=== PATIENT | male | born 1965 | race Caucasian/White ===

== ENCOUNTER 2019-01-21 11:39 | Inpatient (IN) | payer OTHER ==
[2019-01-21 12:37] LABS: ADD MAN DIFF? NO
[2019-01-21 12:40] LABS: ABNORMAL IP MESSAGE 1; BASOPHILS % 0.2 % (0.0-2.0); EOSINOPHILS # 0.1 10^3/ul (0.0-0.5); EOSINOPHILS % 0.7 % (0.0-7.0); HEMATOCRIT 21.5 % (42.0-52.0); HEMOGLOBIN 7.2 g/dl (14.0-18.0); LYMPHOCYTES # 1.7 10^3/ul (0.8-2.9); LYMPHOCYTES % 9.1 % (15.0-51.0); MEAN CORPUSCULAR HEMOGLOBIN 33.6 pg (29.0-33.0); MEAN CORPUSCULAR HGB CONC 33.5 g/dl (32.0-37.0); MEAN CORPUSCULAR VOLUME 100.5 fl (82.0-101.0); MONOCYTE # 2.2 10^3/ul (0.3-0.9); MONOCYTES % 11.9 % (0.0-11.0); NEUTROPHIL # 14.1 10^3/ul (1.6-7.5); NEUTROPHILS % 77.3 % (39.0-77.0); PLATELET COUNT 76 10^3/UL (140-415); POSITIVE DIFF @See below; RED BLOOD COUNT 2.14 10^6/ul (4.70-6.10); RED CELL DISTRIBUTION WIDTH 17.5 % (11.5-14.5)
[2019-01-21 12:40] LABS: WHITE BLOOD COUNT 18.3 10^3/ul (4.8-10.8)
[2019-01-21] MEDS: ALBUMIN HUMAN 25% 100 ML IV ×3 (12:52→23:47)
[2019-01-21] MEDS: CA CHLORIDE 10% 10 ML SYRINGE IV (12:53)
[2019-01-21] MEDS: PIPER-TAZO 2.25 GM (PMX) 50 ML IVPB (12:55)
[2019-01-21 12:57] LABS: ALANINE AMINOTRANSFERASE 25 IU/L (13-69); ALBUMIN 2.3 g/dl (3.3-4.9); ALBUMIN/GLOBULIN RATIO 0.65; ALKALINE PHOSPHATASE 143 IU/L (42-121); ANION GAP 13 (5-13); ASPARTATE AMINO TRANSFERASE 47 IU/L (15-46); BILIRUBIN,INDIRECT 1.6 mg/dl (0-1.1); BILIRUBIN,TOTAL 1.7 mg/dl (0.2-1.3); BLOOD UREA NITROGEN 30 mg/dl (7-20); CALCIUM 8.9 mg/dl (8.4-10.2); CARBON DIOXIDE 22 mmol/L (21-31); CHLORIDE 93 mmol/L (97-110); CREATININE 4.06 mg/dl (0.61-1.24); Estimated GFR 15 mL/min (>60); GLUCOSE 113 mg/dl (70-220); LIPASE 881 U/L (23-300); SODIUM 128 mmol/L (135-144); TOTAL PROTEIN 5.8 g/dl (6.1-8.1)
[2019-01-21 13:04] LABS: PT RATIO 2.5
[2019-01-21 13:08] LABS: TROPONIN-I < 0.012 ng/ml (0.000-0.120)
[2019-01-21 13:20] LABS: PARTIAL THROMBOPLASTIN TIME > 180.0 Sec (23.0-35.0)
[2019-01-21] MEDS: VANCOMYCIN 1 GM (PMX) 250 ML IVPB (13:43)
[2019-01-21] MEDS ORDERED: VANCOMYCIN IV PER PHARMACY XX (14:00)
[2019-01-21] MEDS ORDERED: ONDANSETRON 4 MG INJ IV (14:00)
[2019-01-21] MEDS ORDERED: NACL 0.9% 3 ML SYG IV (14:00)
[2019-01-21] MEDS ORDERED: ALBUTEROL/IPRATROPIUM (NEB) 3 ML AMP HHN (15:30)
[2019-01-21 17:43] LABS: LACTIC ACID 2.8 mmol/L (0.5-2.0)
[2019-01-21] MEDS ORDERED: PIPER-TAZO 3.375 GM IV (PMX) 100 ML IVPB (18:00)
[2019-01-21] MEDS: SOD CHLORIDE 0.9% 1,000 ML IV (18:13)
[2019-01-21] MEDS: PIPER-TAZO 2.25 GM/NS 50 ML IVPB ×2 (18:16→23:53)
[2019-01-21] MEDS: PHYTONADIONE 10 MG/ML INJ SC (18:21)
[2019-01-21] MEDS: VANCOMYCIN 500 MG (PMX) 100 ML IVPB (18:28)
[2019-01-21] MEDS: ALBUTEROL/IPRATROPIUM (NEB) 3 ML AMP HHN (20:00)
[2019-01-21] MEDS: morphine 2 MG INJ IV (20:03)
[2019-01-21] MEDS ORDERED: PIPER-TAZO 2.25 GM/NS 50 ML IVPB (22:00)
[2019-01-21] MEDS: NORepinephrine 8MG/250 ML (PMX 250 ML IV (22:16)
[2019-01-21] MEDS: MIDODRINE 5 MG TAB PO (22:22)
[2019-01-21] MEDS ORDERED: HYDROCODONE/APAP (5/325) TAB PO (23:30)
[2019-01-21] MEDS: HYDROCODONE/APAP (5/325) TAB PO (23:45)
[2019-01-22] MEDS: HYDROmorphONE 1 MG/ML SYG IV (01:44)
[2019-01-22 04:56] LABS: PLATELET COUNT 66 10^3/UL (140-415)
[2019-01-22 05:13] LABS: ALANINE AMINOTRANSFERASE 24 IU/L (13-69); ALBUMIN 3.2 g/dl (3.3-4.9); ALBUMIN/GLOBULIN RATIO 1.06; ALKALINE PHOSPHATASE 118 IU/L (42-121); ANION GAP 16 (5-13); ASPARTATE AMINO TRANSFERASE 38 IU/L (15-46); BILIRUBIN,TOTAL 2.5 mg/dl (0.2-1.3); BLOOD UREA NITROGEN 35 mg/dl (7-20); CALCIUM 9.7 mg/dl (8.4-10.2); CARBON DIOXIDE 22 mmol/L (21-31); CHLORIDE 90 mmol/L (97-110); CREATININE 4.45 mg/dl (0.61-1.24); Estimated GFR 14 mL/min (>60); GLUCOSE 108 mg/dl (70-220); INR 1.73; MAGNESIUM 2.5 mg/dl (1.7-2.5); POTASSIUM 4.2 mmol/L (3.5-5.1); PROTIME 20.3 Sec (11.9-14.9); PT RATIO 1.6; SODIUM 128 mmol/L (135-144); THROMBIN TIME 19.2 SEC (13.8-19.1); TOTAL PROTEIN 6.2 g/dl (6.1-8.1)
[2019-01-22 05:14] LABS: PARTIAL THROMBOPLASTIN TIME 51.1 Sec (23.0-35.0)
[2019-01-22 05:16] LABS: AMMONIA 22 umol/l (9-30)
[2019-01-22] MEDS: PANTOPRAZOLE 40 MG INJ IV (05:59)
[2019-01-22] MEDS: MIDODRINE 5 MG TAB PO ×3 (06:00→21:16)
[2019-01-22] MEDS: PIPER-TAZO 2.25 GM/NS 50 ML IVPB ×2 (06:00→18:33)
[2019-01-22] MEDS: ALBUMIN HUMAN 25% 100 ML IV (06:04)
[2019-01-22 07:55] LABS: ABNORMAL IP MESSAGE 1; HEMATOCRIT 17.5 % (42.0-52.0); MEAN CORPUSCULAR HEMOGLOBIN 33.7 pg (29.0-33.0); MEAN CORPUSCULAR HGB CONC 33.7 g/dl (32.0-37.0); MEAN PLATELET VOLUME 11.3 fl (7.4-10.4); PLATELET COUNT 57 10^3/UL (140-415); POSITIVE DIFF @See below; RED BLOOD COUNT 1.75 10^6/ul (4.70-6.10); RED CELL DISTRIBUTION WIDTH 17.5 % (11.5-14.5)
[2019-01-22 07:55] LABS: WHITE BLOOD COUNT 9.6 10^3/ul (4.8-10.8)
[2019-01-22 07:57] LABS: ADD MAN DIFF? YES; HEMOGLOBIN 5.9 g/dl (14.0-18.0)
[2019-01-22] MEDS ORDERED: PENDING SANTYL ORDER FOR WOUND CARE XX (08:00)
[2019-01-22] MEDS: ALBUTEROL/IPRATROPIUM (NEB) 3 ML AMP HHN ×3 (08:50→19:59)
[2019-01-22] MEDS: THIAMINE 100 MG TAB PO (09:49)
[2019-01-22] MEDS: FOLIC ACID 1 MG TAB PO (09:49)
[2019-01-22 10:00] LABS: IMMEDIATE SPIN CROSSMATCH 1 2
[2019-01-22 10:15] LABS: SEGMENTED NEUTROPHILS (M) % 88 % (39-77)
[2019-01-22 10:16] LABS: ANISOCYTOSIS 2+ (0-0); BURR CELLS 1+ (0-0); EOSINOPHILS % (M) 1 % (0-7); HYPOCHROMASIA 2+ (0-0); LYMPHOCYTES #M 0.7 10^3/ul (0.8-2.9); LYMPHOCYTES % (M) 8 % (15-51); MONOCYTE #M 0.2 10^3/ul (0.3-0.9); MONOCYTES % (M) 3 % (0-11); PLATELET ESTIMATE DECREASED; POLYCHROMASIA 1+ (0-0); SMUDGE%M 7 % (0-0); TARGET CELLS 1+ (0-0); TOXIC GRANULATION 1+ (0-0)
[2019-01-22] MEDS ORDERED: COLLAGENASE 30 GM TUBE TOP ×2 (12:00)
[2019-01-22] MEDS: ALBUMIN HUMAN 25% 50 ML IV ×2 (12:07→18:44)
[2019-01-22] MEDS ORDERED: COLLAGENASE 5 GM (UD JAR) TOP (12:30)
[2019-01-22] MEDS: ACETAMINOPHEN 1000MG/100ML IV 100 ML IVPB (13:32)
[2019-01-22] MEDS: LACTULOSE 30ML CUP PO (13:34)
[2019-01-22] MEDS: COLLAGENASE 5 GM (UD JAR) TOP (13:34)
[2019-01-22] MEDS: HYDROmorphONE 0.5 MG/0.5 ML SYG IV (18:29)
[2019-01-22] MEDS: NORepinephrine 8MG/250 ML (PMX 250 ML IV (21:30)
[2019-01-23] MEDS: ALBUMIN HUMAN 25% 50 ML IV (03:13)
[2019-01-23] MEDS: PIPER-TAZO 2.25 GM/NS 50 ML IVPB (05:25)
[2019-01-23 05:59] LABS: VANCOMYCIN,RANDOM 16.9 ug/ml
[2019-01-23] MEDS: PANTOPRAZOLE 40 MG INJ IV (06:29)
[2019-01-23] MEDS: MIDODRINE 5 MG TAB PO ×2 (06:29→14:00)
[2019-01-23] MEDS: ALBUTEROL/IPRATROPIUM (NEB) 3 ML AMP HHN ×3 (08:00→20:00)
[2019-01-23] MEDS ORDERED: SPIRONOLACTONE 25 MG TAB PO (09:00)
[2019-01-23] MEDS: THIAMINE 100 MG TAB PO (09:00)
[2019-01-23] MEDS: COLLAGENASE 5 GM (UD JAR) TOP (09:00)
[2019-01-23] MEDS: FOLIC ACID 1 MG TAB PO (09:00)
[2019-01-23] MEDS: VANCOMYCIN 1 GM 250 ML IVPB (11:09)
[2019-01-23] MEDS: HYDROmorphONE 0.5 MG/0.5 ML SYG IV (14:35)
[2019-01-23] MEDS ORDERED: LORAZEPAM 2 MG INJ IV (15:30)
[2019-01-23] MEDS ORDERED: ACETAMINOPHEN 650 MG SUPP PR (15:30)
[2019-01-23] MEDS ORDERED: morphine 2 MG INJ IV (15:30)
[2019-01-23] MEDS: morphine (DRIP) 100 MG/100 ML 100 ML IV (16:30)
[2019-01-24] MEDS: ALBUTEROL/IPRATROPIUM (NEB) 3 ML AMP HHN ×2 (08:00→13:35)
[2019-01-24] MEDS: COLLAGENASE 5 GM (UD JAR) TOP ×2 (08:36→09:00)
[2019-01-24] MEDS: morphine (DRIP) 100 MG/100 ML 100 ML IV (17:54)
[2019-01-24] MEDS: SCOPOLAMINE 1.5 MG PATCH TRANSDERM (20:15)
[2019-01-24] MEDS: ATROPINE SULFATE 1% 5ML SL ×2 (20:16→23:45)
[2019-01-25] MEDS: ATROPINE SULFATE 1% 5ML SL ×5 (08:16→21:41)
[2019-01-25] MEDS: morphine (DRIP) 100 MG/100 ML 100 ML IV ×2 (08:47→20:37)
[2019-01-25] MEDS: COLLAGENASE 5 GM (UD JAR) TOP (15:12)
[2019-01-26] MEDS: ATROPINE SULFATE 1% 5ML SL (06:18)
== END 2019-01-26 11:08 | disposition expired | DRG 871 ==
LOC: PP2 01-24 06:32 → E/R 11:39 → ICU 13:43
PROVIDERS: Pediatrics
PROC: 06HC33Z Insertion of Infusion Device into Right Common Iliac Vein, Percutaneous Approach (ICD-10-PCS; principal; 2019-01-21)
DX: A41.9 Sepsis, unspecified organism (principal); R65.21 Severe sepsis with septic shock; J18.9 Pneumonia, unspecified organism; N18.6 End stage renal disease; E87.1 Hypo-osmolality and hyponatremia; E87.2 Acidosis; I12.0 Hypertensive chronic kidney disease with stage 5 chronic kidney disease or end stage renal disease; D68.4 Acquired coagulation factor deficiency; K70.31 Alcoholic cirrhosis of liver with ascites; K72.90 Hepatic failure, unspecified without coma; D69.6 Thrombocytopenia, unspecified; D64.9 Anemia, unspecified; Z51.5 Encounter for palliative care; Z66 Do not resuscitate; Z99.2 Dependence on renal dialysis
CPT/HCPCS: 36415; 36430; 36556; 71045; 74176; 76942; 80053; 80202; 82140; 83036; 83605; 83690; 83735; 84484; 85025; 85049; 85610; 85670; 85730; 86644; 86850; 86900; 86901; 86920; 87040; 87081; 93005; 94640; 94664; 96365; 96368; 96375; 99291-25